=== PATIENT | male | born 1975 | race Caucasian/White ===

== ENCOUNTER 2017-03-15 18:27 | Emergency (ER) | payer OTHER ==
[~2017-03-15] VITALS: Ht 175.3 cm; Wt 154.2 kg
--- NOTE | ~2017-03-15 | CR63 ---
[facility] A Service of [facility] RADIOLOGY TEXT RESULTS PATIENT: LAILA TALAVERA LOCATION: [facility] : 75 UNIT #: [id number] AGE: [address]: Kannan Rodriguez DO SEX: M ORDER DR: [id number] [facility] [address] [place], [place] [address] [id number] E MR#: [id number] Acc #: [id number] NAME: LAILA TALAVERA : 1975 SEX: M STUDY DATE/TIME: 03/15/2017 22:32 UNIT: [facility] ROOM: STUDY DESCRIPTION: CR Chest 2 View Attending Physician: Kannan Rodriguez D.O. Ordering Physician: Kannan Rodriguez D.O. Primary Care Physician: Ross Tracy Pa-C MEDICAL IMAGING REPORT This report is preliminary unless electronic signature is present EXAM Chest 2 views, 03/15/2017 COMPARISON Chest 2 views, 07/30/2012 HISTORY Cough and congestion since 6 p.m. today. FINDINGS Two views of the chest were obtained. Lungs are well aerated. Heart and mediastinum are within normal limits. Multilevel endplate osteophytes are noted suggestive of degenerative disease or diffuse idiopathic hyperostosis. Dictated by... Gabriel Medina M.D. THIS IS AN ELECTRONICALLY VERIFIED REPORT Gabriel Medina M.D. at 03/17/2017 7:32 PM CPR/rox TD: 03/16/2017 12:23 JOB #: [id number] MEDICAL IMAGING REPORT Page 1 of 1 COPY
--- NOTE | ~2017-03-15 | EKG ---
PATIENT: LAILA TALAVERA UNIT #: [id number] Ventricular Rate: 76 BPM Atrial Rate: 76 BPM P-R Interval: 138 ms QRS Duration: 96 ms Q-T Interval: 368 ms QTC Calculation(Bezet): 414 ms P Kilgore: -6 degrees Calculated R Kilgore: 79 degrees Calculated T Kilgore: 3 degrees Diagnosis Line: Normal sinus rhythm Diagnosis Line: Normal ECG Diagnosis Line: When compared with ECG of 28-MAY-2016 18:41, Diagnosis Line: No significant change was found Diagnosis Line: Confirmed by ROSSY FOUNTAIN MD ([id number]) on Diagnosis Line: 03/16/2017 11:17:08 PM INTERPRETING MD: ESSIE HOUSTON
--- NOTE | ~2017-03-15 | CT71 ---
[facility] A Service of [facility] RADIOLOGY TEXT RESULTS PATIENT: LAILA TALAVERA LOCATION: [facility] : 75 UNIT #: [id number] AGE: [address]: Kannan Rodriguez DO SEX: M ORDER DR: [id number] [facility] [address] [place], [place] [address] [id number] E MR#: [id number] Acc #: [id number] NAME: LAILA TALAVERA : 1975 SEX: M STUDY DATE/TIME: 03/15/2017 20:22 UNIT: [facility] ROOM: STUDY DESCRIPTION: CT Head Wo Contrast Attending Physician: Kannan Rodriguez D.O. Ordering Physician: Kannan Rodriguez D.O. Primary Care Physician: Ross Tracy Pa-C MEDICAL IMAGING REPORT This report is preliminary unless electronic signature is present EXAM CT head without contrast dated 03/15/2017 COMPARISON None. HISTORY Memory issues for 3 hours. Patient feels disoriented and dehydrated with weakness today. TECHNIQUE This CT exam was performed with one or more of the following radiation dose reduction techniques: automatic exposure control, adjustment of mA and/or kV according to patient size, and iterative reconstruction. FINDINGS CT of the head was obtained without contrast in the axial plane as per the protocol. Age-appropriate parenchymal volume is seen. Mild motion artifact is noted in some of the images at the base of the brain involving the region of the jc. No acute intracranial hemorrhage, space-occupying mass, mass effect, midline shift or hydrocephalus. Mild paranasal sinus mucosal thickening is noted particularly in the left maxillary antrum. Mastoid air cells are well-aerated. Orbits with the ocular structures do not demonstrate any significant abnormality. IMPRESSION Mild motion artifact limits evaluation but there is no significant acute intracranial abnormality after giving allowances to motion. Dictated by.Emmanuel. Gabriel Medina M.D. THIS IS AN ELECTRONICALLY VERIFIED REPORT [facility] A Service of [facility] RADIOLOGY TEXT RESULTS PATIENT: LAILA TALAVERA LOCATION: [facility] : 75 UNIT #: [id number] AGE: [address]: Kannan Rodriguez DO SEX: M ORDER DR: Gabriel Medina M.D. at 03/17/2017 7:32 PM CPR/rox TD: 03/16/2017 09:52 JOB #: [id number] MEDICAL IMAGING REPORT Page 1 of 1 COPY
[~2017-03-15 18:27] MED LIST: AMLODIPINE-BENA1 CA1; AMLODIPINE-BENA1 CAP PO; NEXIUM PO; NYQUIL D COLD295 ML PO; PHENERGAN PO; PREVACID PO; VICOPROFEN 200-1 TAB PO
[2017-03-15 20:07] LABS: URINE SOURCE CLEAN CATCH
[2017-03-15 20:19] LABS: BASOPHIL% 0.4 % (0-2.5); EOSINOPHIL# 0.2 X10e3 (0-0.7); EOSINOPHIL% 1.7 % (0.0-7.0); HEMATOCRIT 46.1 % (38.0-50.0); HEMOGLOBIN 15.8 gm/dL (13.0-16.0); LYMPHOCYTE# 2.5 X10e3 (1.0-3.5); LYMPHOCYTE% 27.9 % (17.0-45.0); MEAN CELL VOLUME 86.3 FL (83-96); MEAN CORPUSCULAR HEMOGLOBIN 29.6 PG (28-34); MEAN CORPUSCULAR HGB CONC 34.2 g/dL (30-36); MEAN PLATELET VOLUME 7.8 FL (6.5-11.5); MONOCYTE# 0.9 X10e3 (0-1.0); MONOCYTE% 9.8 % (3.0-12.0); NEUTROPHIL# 5.5 X10e3 (1.5-7.1); NEUTROPHIL% 60.2 % (40-75); PLATELET COUNT 190 X10e3 (140-420); RED BLOOD COUNT 5.34 X10e (3.90-5.60); RED CELL DISTRIBUTION WIDTH 13.6 % (11.0-15.5); WHITE BLOOD COUNT 9.1 X10e3 (4.0-10.5)
[2017-03-15 20:20] LABS: DIFF IND NO; URINE APPEARANCE CLEAR; URINE BILIRUBIN NEG (NEG); URINE BLOOD NEG (NEG); URINE COLOR YELLOW; URINE GLUCOSE NEG (NEG); URINE KETONE NEG (NEG); URINE LEUKOCYTE ESTERASE NEG (NEG); URINE NITRATE NEG (NEG); URINE PH 6.5 (5-8); URINE PROTEIN NEG (NEG); URINE SPECIFIC GRAVITY 1.002 (1.003-1.035); URINE UROBILINOGEN 0.2 MG/DL (NEG)
[2017-03-15 20:25] LABS: POC - TROPONIN <0.05 ng/mL (<=0.05)
[2017-03-15 20:32] LABS: AMPHETAMINE NEG (NEG); BARBITURATES NEG (NEG); BENZODIAZEPINES NEG (NEG); COCAINE NEG (NEG); MARIJUANA NEG (NEG); OPIATES NEG (NEG); TRICYCLIC ANTIDEPRESSANTS NEG (NEG); U METHADONE NEG (NEG)
[2017-03-15 20:33] LABS: INR 1.1; PARTIAL THROMBOPLASTIN TIME 25.1 SECONDS (23.5-31.3); PROTHROMBIN TIME (PATIENT) 11.8 SECONDS (10.0-11.7)
[2017-03-15 20:38] LABS: CULTURE INDICATED? NO
[2017-03-15 21:28] LABS: ALBUMIN SERUM 4.1 g/dL (3.5-5.0); BILIRUBIN, DIRECT 0.1 mg/dL (0.0-0.2); BILIRUBIN,TOTAL 1.1 mg/dL (0.2-2.0); BUN/CREATININE RATIO 12.72; CALCIUM SERUM 9.2 mg/dL (8.4-10.2); CREATININE SERUM 1.1 mg/dL (0.6-1.4); POTASSIUM 3.6 mmol/L (3.5-5.1); PROTEIN TOTAL SERUM 7.3 g/dL (6.0-8.3)
== END 2017-03-15 23:15 | disposition home or self-care (01) ==
LOC: CED 18:27
PROVIDERS: Emergency Medicine
DX: T67.9XXA Effect of heat and light, unspecified, initial encounter (principal); E86.0 Dehydration; X30.XXXA Exposure to excessive natural heat, initial encounter; Y92.9 Unspecified place or not applicable; Z98.890 Other specified postprocedural states
CPT/HCPCS: 36415; 70450; 71020; 80048; 80076; 80307; 81003; 82550; 82553; 82947; 84484; 85025; 85610; 85730; 93005; 96360; 96361; 99285